=== PATIENT | female | born 1930 | race Caucasian/White ===

== ENCOUNTER 2017-08-15 11:46 | Emergency (ER) | payer OTHER ==
[~2017-08-15] VITALS: Ht 157.5 cm; Wt 81.8 kg
[~2017-08-15 11:46] MED LIST: ALLOPURINOL300 MG PO; ANTIVERT50 MG PO; BENTYL20 MG; DILANTIN100 MG; HYDROCHLOROTHIA25 MG PO; LANTUS 10100 UNITS/ SC; LEVOTHYROXINE100 MCG PO; METFORMIN HCL1000 MG PO; METOPROLOL SUC100 MG PO; NORVASC5 MG PO; SIMVASTATIN20 MG; VASOTEC10 MG PO; VICODIN,LORT1 TABLET PO; domperidone PO
[2017-08-15 12:40] LABS: EOSINOPHIL (%) 1.6 % (0-5); EOSINOPHIL COUNT 0.1 K/uL (0-0.3); HEMATOCRIT 46.8 % (36.0-46.0); IMMATURE GRANULOCYTE (%) 0.8 % (0.0-0.7); IMMATURE GRANULOCYTE COUNT 0.1 K/uL; INSTRUMENT ABS NEUTROPHIL CT 6.5 K/uL; LYMPHOCYTE COUNT 1.5 K/uL (1.0-2.8); MCH 30.5 PG (29.0-34.0); MCHC 32.9 G/DL (30.0-36.0); MCV 92.7 FL (83-99); MEAN PLAT.VOLUME 9.9 uM^3 (9.5-12.4); MONOCYTE (%) 8.6 % (3-12); MONOCYTE COUNT 0.8 K/uL (0-0.8); NEUTROPHIL (%) 72.4 % (45-76); NEUTROPHIL COUNT 6.5 K/uL (1.8-6.4); PLATELET COUNT 110 K/uL (156-360); RBC DIS.WIDTH-CV 14.6 % (11.8-14.6); RED BLOOD COUNT 5.05 M/uL (3.80-5.20)
[2017-08-15 12:43] LABS: INTER. NORMALIZED RATIO 1.2
[2017-08-15 12:46] LABS: PTT 37.4 SEC (25-37)
[2017-08-15 12:48] LABS: CHLORIDE 101 mEq/L (99-109); POTASSIUM 3.9 mEq/L (3.7-5.4); SODIUM 135 mEq/L (136-147)
[2017-08-15 12:49] LABS: GLUCOSE 260 mg/dL (70-99)
[2017-08-15 12:51] LABS: ANION GAP 12 MEQ/L (2-14)
[2017-08-15 12:53] LABS: GFR ESTIMATE (CALCULATED) > 59 mL/min/
[2017-08-15 12:54] LABS: UREA NITROGEN (BUN) 14 mg/dL (9-23)
[2017-08-15 12:59] LABS: TROP-I INTERPRETATION NEGATIVE; TROPONIN-I < 0.01 ng/mL (0.0-0.30)
[2017-08-15] MEDS ORDERED: ULTRAM50 MG PO (15:03)
[2017-08-15 15:16] VITALS: BP 145/75
== END 2017-08-15 15:16 | disposition home or self-care (01) ==
LOC: EME 11:46
PROVIDERS: Emergency Medicine
DX: G89.18 Other acute postprocedural pain (principal); R07.89 Other chest pain; E78.5 Hyperlipidemia, unspecified; I10 Essential (primary) hypertension; E11.9 Type 2 diabetes mellitus without complications; Z79.4 Long term (current) use of insulin; Z85.05 Personal history of malignant neoplasm of liver
CPT/HCPCS: 71010; 80048; 84484; 85025; 85610; 85730; 93005; 99281; 99284; J1885

== ENCOUNTER 2017-08-23 09:45 | Emergency (ER) | payer OTHER ==
[~2017-08-23] VITALS: Ht 157.5 cm; Wt 85.0 kg
[~2017-08-23 09:45] MED LIST changes: +ULTRAM50 MG PO
[2017-08-23 10:33] LABS: HEMATOCRIT 44.9 % (36.0-46.0); MCH 30.5 PG (29.0-34.0); MCHC 33.2 G/DL (30.0-36.0); MCV 91.8 FL (83-99); MEAN PLAT.VOLUME 9.7 uM^3 (9.5-12.4); RBC DIS.WIDTH-CV 14.4 % (11.8-14.6); RBC DIS.WIDTH-SD 48.7 % (39-53); RED BLOOD COUNT 4.89 M/uL (3.80-5.20); WHITE BLOOD COUNT 8.5 K/uL (4.1-10.2)
[2017-08-23 10:34] LABS: PLATELET COUNT 187 K/uL (156-360)
[2017-08-23 10:51] LABS: CHLORIDE 104 mEq/L (99-109); POTASSIUM 4.1 mEq/L (3.7-5.4); SODIUM 139 mEq/L (136-147); TROP-I INTERPRETATION NEGATIVE; TROPONIN-I < 0.01 ng/mL (0.0-0.30)
[2017-08-23 10:52] LABS: GLUCOSE 220 mg/dL (70-99)
[2017-08-23 10:54] LABS: ANION GAP 13 MEQ/L (2-14)
[2017-08-23 10:56] LABS: GFR ESTIMATE (CALCULATED) > 59 mL/min/
[2017-08-23 10:57] LABS: UREA NITROGEN (BUN) 17 mg/dL (9-23)
[2017-08-23 15:15] VITALS: BP 138/83
== END 2017-08-23 15:17 | disposition home or self-care (01) ==
LOC: EME 09:45
DX: R07.9 Chest pain, unspecified (principal); C34.90 Malignant neoplasm of unspecified part of unspecified bronchus or lung; Z98.890 Other specified postprocedural states; E11.9 Type 2 diabetes mellitus without complications; Z79.4 Long term (current) use of insulin; E78.5 Hyperlipidemia, unspecified; I10 Essential (primary) hypertension; Z91.040 Latex allergy status
CPT/HCPCS: 71020; 71275; 80048; 84484; 85027; 93005; 99281; 99285; J7030

== ENCOUNTER 2017-12-27 10:21 | Emergency (ER) | payer OTHER ==
[~2017-12-27] VITALS: Ht 157.5 cm; Wt 87.7 kg
[2017-12-27 11:02] LABS: HEMATOCRIT 44.6 % (36.0-46.0); HEMOGLOBIN 15.5 G/DL (11.9-15.5); MCHC 34.8 G/DL (30.0-36.0); PLATELET COUNT 125 K/uL (156-360); RBC DIS.WIDTH-CV 14.1 % (11.8-14.6); RBC DIS.WIDTH-SD 47.7 % (39-53); RED BLOOD COUNT 4.85 M/uL (3.80-5.20); WHITE BLOOD COUNT 6.2 K/uL (4.1-10.2)
[2017-12-27 11:10] LABS: CHLORIDE 105 mEq/L (99-109); POTASSIUM 4.3 mEq/L (3.7-5.4); SODIUM 137 mEq/L (136-147)
[2017-12-27 11:12] LABS: GLUCOSE 206 mg/dL (70-99)
[2017-12-27 11:16] LABS: CREATININE 0.8 mg/dL (0.6-1.3); GFR ESTIMATE (CALCULATED) > 59 mL/min/; UREA NITROGEN (BUN) 20 mg/dL (9-23)
[2017-12-27 13:44] LABS: APPEARANCE CLEAR ((CLEAR)); BILIRUBIN NEGATIVE; BLOOD SMALL; COLOR YELLOW ((YELLOW)); GLUCOSE (STRIP) 50; KETONES NEGATIVE; LEUKOCYTES TRACE; NITRITE NEGATIVE; PROTEIN (STRIP) 30; UROBILINOGEN 0.2 MG/DL (0.2-1.0)
[2017-12-27 13:50] LABS: BACTERIA NONE SEEN /HPF; EPITHELIAL CELLS RARE /HPF; MUCUS TRACE /LPF; UCUL ADDED? NO; WHITE BLOOD CELLS 0-5 /HPF (0-5)
[2017-12-27 14:06] LABS: ALBUMIN 3.8 g/dL (3.2-4.8)
[2017-12-27 14:09] LABS: TOTAL PROTEIN 7.7 g/dL (6.4-8.3)
[2017-12-27 14:12] LABS: ALKALINE PHOSPHATASE 137 IU/L (3-129)
[2017-12-27 14:14] LABS: AST (GOT) 33 IU/L (2-34); DIRECT BILIRUBIN 0.4 mg/dL (0.0-0.3)
[2017-12-27 14:15] LABS: ALT (GPT) 22 IU/L (3-49); LIPASE 29 U/L (1.0-51.0)
[2017-12-27] MEDS ORDERED: KEFLEX500 MG PO (16:51)
[2017-12-27 16:56] VITALS: BP 144/81
== END 2017-12-27 16:59 | disposition home or self-care (01) ==
LOC: EME 10:21
DX: N39.0 Urinary tract infection, site not specified (principal); K43.9 Ventral hernia without obstruction or gangrene; K21.9 Gastro-esophageal reflux disease without esophagitis; I10 Essential (primary) hypertension; E78.5 Hyperlipidemia, unspecified; E11.9 Type 2 diabetes mellitus without complications; Z79.4 Long term (current) use of insulin; Z85.118 Personal history of other malignant neoplasm of bronchus and lung; Z85.05 Personal history of malignant neoplasm of liver; Z90.49 Acquired absence of other specified parts of digestive tract; Z91.040 Latex allergy status
CPT/HCPCS: 74177; 80048; 80076; 81003; 83690; 85027; 93005; 99281; 99284; J3010